=== PATIENT | male | born 1945 | race Caucasian/White ===

== ENCOUNTER 2019-07-01 17:05 | Inpatient (IN) ==
[2019-07-01 18:57] LABS: Basophils % 0.3 %
[2019-07-01 18:59] LABS: Eosinophils % 0.5 %; Hematocrit 22.6 % (37.5-50.1); Hemoglobin 7.6 g/dL (12.9-16.9); Immature Granulocytes % 1.3 % (0-4); Immature Platelets 8.3 % (1.1-6.1); Lymphocytes # 0.3 K/mcL (0.6-4.6); Mean Corpuscular HGB Conc 33.6 g/dL (31.6-35.5); Mean Corpuscular Hemoglobin 32.2 pg (28.0-33.3); Mean Corpuscular Volume 95.8 fL (83.0-100.0); Mean Platelet Volume 11.9 fL (9.4-12.4); Monocytes # 0.7 K/mcL (0.0-1.3); Monocytes % 10.8 %; Neutrophils # 4.9 K/mcL (1.6-8.9); Red Blood Count 2.36 M/mcL (4.19-5.50); Red Cell Distribution Width 23.7 % (11.5-14.5); Segmented Neutrophils % 82.1 %
[2019-07-01 19:00] LABS: Platelet Count 75 K/mcL (140-400)
[2019-07-01 19:19] LABS: Anisocytosis 1+ (Not Present); Platelet Estimate Decreased (Normal)
[2019-07-01 19:30] LABS: Alanine Aminotransferase 173 Units/L (7-52); Albumin 2.9 g/dL (3.5-5.7); Albumin/Globulin Ratio 1.1 (1.1-2.2); Alkaline Phosphatase > 1500 Units/L (34-104); Aspartate Amino Transferase 240 Units/L (13-39); BUN/Creatinine Ratio 16 (6-26); Bilirubin,Total 21.4 mg/dL (0.3-1.0); Blood Urea Nitrogen 16 mg/dL (8-23); Calcium 8.2 mg/dL (8.6-10.3); Carbon Dioxide 19 mEq/L (23-29); Chloride 96 mEq/L (98-107); Globulin 2.7 g/dL (2.4-3.5); Glucose 107 mg/dL (70-105); Osmolality,Calculated 266 (280-300); Potassium 3.8 mEq/L (3.5-5.1); Sodium 127 mEq/L (136-145); Total Protein 5.6 g/dL (6.4-8.9); Troponin I 0.06 ng/mL (< 0.04); eGFR For African Americans > 60 (> 60); eGFR For Non-African Americans > 60 (> 60)
[2019-07-01] MEDS ORDERED: chlorproMAZINE 25 MG TABLET PO ONE (21:02)
[2019-07-01] MEDS ORDERED: *HR* HYDROcodone/Acet 5/325 mg TABLET PO ONE (21:31)
[2019-07-01] MEDS ORDERED: *HR* LORazepam 1 MG TABLET PO ONE (21:31)
[2019-07-01] MEDS ORDERED: Naloxone 0.4 MG/ML INJ IVP PRN (22:46)
[2019-07-02] MEDS ORDERED: Ondansetron ODT 4 MG TAB.RAPDIS SL PRN (01:21)
[2019-07-02] MEDS ORDERED: *HR* HYDROcodone/Acet 5/325 mg TABLET PO PRN (01:21)
[2019-07-02] MEDS ORDERED: *HR* LORazepam 1 MG TABLET PO PRN (01:21)
[2019-07-02] MEDS ORDERED: Magic Mouthwash 10 ML UD Cup PO PRN (01:21)
[2019-07-02 01:56] LABS: Basophils % 0.2 %; Immature Granulocytes % 1.1 % (0-4)
[2019-07-02 01:58] LABS: Eosinophils % 0.9 %; Hematocrit 20.6 % (37.5-50.1); Hemoglobin 6.7 g/dL (12.9-16.9); Immature Platelets 6.6 % (1.1-6.1); Lymphocytes # 0.4 K/mcL (0.6-4.6); Lymphocytes % 7.7 %; Mean Corpuscular HGB Conc 32.5 g/dL (31.6-35.5); Mean Corpuscular Hemoglobin 32.2 pg (28.0-33.3); Mean Platelet Volume 11.4 fL (9.4-12.4); Monocytes # 0.4 K/mcL (0.0-1.3); Monocytes % 9.7 %; Red Blood Count 2.08 M/mcL (4.19-5.50); Red Cell Distribution Width 23.9 % (11.5-14.5); Segmented Neutrophils % 80.4 %; White Blood Count 4.5 K/mcL (4.3-11.1)
[2019-07-02 02:02] LABS: Neutrophils # 3.6 K/mcL (1.6-8.9); Platelet Count 68 K/mcL (140-400)
[2019-07-02 02:17] LABS: BUN/Creatinine Ratio 16 (6-26); Blood Urea Nitrogen 16 mg/dL (8-23); Calcium 7.9 mg/dL (8.6-10.3); Carbon Dioxide 20 mEq/L (23-29); Chloride 98 mEq/L (98-107); Glucose 111 mg/dL (70-105); Magnesium 2.3 mg/dL (1.6-2.6); Osmolality,Calculated 268 (280-300); Phosphorous 2.2 mg/dL (2.7-4.5); Sodium 128 mEq/L (136-145); eGFR For African Americans > 60 (> 60); eGFR For Non-African Americans > 60 (> 60)
[2019-07-02 02:26] LABS: Anisocytosis 1+ (Not Present); Platelet Estimate Marked Decrease (Normal)
[2019-07-02] MEDS ORDERED: 0.9 % Sodium Chloride 250 ML ONE ×3 (04:01→07:52)
[2019-07-02 07:03] LABS: Alanine Aminotransferase 160 Units/L (7-52); Albumin 2.6 g/dL (3.5-5.7); Alkaline Phosphatase 1371 Units/L (34-104); Aspartate Amino Transferase 223 Units/L (13-39); Bilirubin,Direct 11.3 mg/dL (0.0-0.2); Bilirubin,Indirect 9.4 mg/dL (0.0-1.0); Bilirubin,Total 20.7 mg/dL (0.3-1.0); Globulin 2.7 g/dL (2.4-3.5); Thyroid Stimulating Hormone 5.701 mcIU/mL (0.340-5.600); Total Protein 5.3 g/dL (6.4-8.9)
[2019-07-02] MEDS: Famotidine 20 MG TABLET PO SCH ×2 (08:10→20:50)
[2019-07-02] MEDS ORDERED: *HR* Phytonadione 10 MG/ML AMPUL SQ ONE (08:16)
[2019-07-02 08:38] LABS: Bilirubin,Urine Large (Negative); Blood,Urine Negative (Negative); Clarity,Urine Turbid (Clear); Color,Urine Orange (Yellow); Glucose,Urine (UA) Normal (Normal); Ketones,Urine Trace mg/dL (Negative); Leukocyte Esterase,Urine Negative (Negative); Nitrite,Urine Negative (Negative); Protein,Urine Negative (Neg-Trace); Specific Gravity,Urine 1.022 (1.010-1.025); Urobilinogen,Urine Normal (Normal)
[2019-07-02 08:39] LABS: Bacteria,Urine None Seen per hpf (None-Few); Hyaline Casts,Urine None Seen per lpf (None-Few); RBC,Urine 50-100 per hpf (0-3); Squamous Epithelial Cell,Urine None Seen per lpf (None-Few); WBC,Urine 0-3 per hpf (0-3)
[2019-07-02] MEDS ORDERED: Famotidine 20 MG TABLET PO SCH (09:00)
[2019-07-02 12:46] LABS: Hematocrit 27.6 % (37.5-50.1)
[2019-07-02 12:48] LABS: Hemoglobin 9.5 g/dL (12.9-16.9)
[2019-07-02 14:57] LABS: INR 3.3; Prothrombin Time 37.4 Seconds (9.4-12.1)
[2019-07-02 17:52] LABS: Hematocrit 28.4 % (37.5-50.1); Hemoglobin 9.6 g/dL (12.9-16.9)
[2019-07-02] MEDS ORDERED: Mirtazapine 15 MG TABLET PO SCH (21:00)
[2019-07-03 03:32] LABS: Basophils % 0.4 %; Eosinophils # 0.1 K/mcL (0.0-0.6); Eosinophils % 1.3 %; Hemoglobin 9.1 g/dL (12.9-16.9); Immature Granulocytes % 1.1 % (0-4); Immature Platelets 5.5 % (1.1-6.1); Lymphocytes # 0.3 K/mcL (0.6-4.6); Lymphocytes % 5.1 %; Mean Corpuscular HGB Conc 33.7 g/dL (31.6-35.5); Mean Corpuscular Volume 91.8 fL (83.0-100.0); Monocytes # 0.5 K/mcL (0.0-1.3); Monocytes % 9.4 %; Neutrophils # 4.4 K/mcL (1.6-8.9); Red Blood Count 2.94 M/mcL (4.19-5.50); Red Cell Distribution Width 23.8 % (11.5-14.5); Segmented Neutrophils % 82.7 %; White Blood Count 5.3 K/mcL (4.3-11.1)
[2019-07-03 03:34] LABS: INR 2.1; Platelet Count 66 K/mcL (140-400); Prothrombin Time 24.4 Seconds (9.4-12.1)
[2019-07-03 03:49] LABS: BUN/Creatinine Ratio 14 (6-26); Blood Urea Nitrogen 13 mg/dL (8-23); Calcium 7.7 mg/dL (8.6-10.3); Carbon Dioxide 20 mEq/L (23-29); Chloride 99 mEq/L (98-107); Glucose 88 mg/dL (70-105); Osmolality,Calculated 264 (280-300); Potassium 3.5 mEq/L (3.5-5.1); Sodium 127 mEq/L (136-145); eGFR For African Americans > 60 (> 60); eGFR For Non-African Americans > 60 (> 60)
[2019-07-03 04:03] LABS: Anisocytosis 1+ (Not Present); Platelet Estimate Decreased (Normal)
[2019-07-03 04:04] LABS: Polychromasia 1+ (Not Present)
[2019-07-03] MEDS: Famotidine 20 MG TABLET PO SCH (08:19)
[2019-07-03] MEDS ORDERED: *HR* OxyCODONE Immed Rel 5 MG TABLET PO PRN (09:53)
[2019-07-03] MEDS ORDERED: chlorproMAZINE 25 MG TABLET PO PRN (10:32)
[2019-07-03 16:53] VITALS: BP 106/65
== END 2019-07-03 19:25 | disposition short-term general hospital (02) | DRG 436 ==
LOC: CDU 17:05 → EMEROOARM 17:05 → CDU 23:30 → SUATTDRO 07-02 03:36
PROVIDERS: ADMIT Internal Medicine; ATTEND Internal Medicine